=== PATIENT | male | born 1960 | race Caucasian/White ===

== ENCOUNTER → 2021-04-13 10:30 | Outpatient (CLI) | payer OTHER, SELFPAY ==
[2021-04-13 19:46] LABS: Add Manual Diff / Slide Review NO; Basophils Absolute Auto 0 /uL (0-100); Basophils Percent Auto 0.6 % (0-2); Eosinophils Absolute Auto 100 /uL (0-450); Eosinophils Percent Auto 2.4 % (2-4); Hematocrit 45.2 % (41-53); Hemoglobin 14.9 g/dL (13.5-17.5); Lymphocytes Absolute Auto 1400 /uL (1100-4500); Lymphocytes Percent Auto 24.8 % (25-40); Mean Corpuscular Hemoglobin 29.3 PG (26-34); Mean Corpuscular Volume 88.6 fL (80-100); Monocytes Absolute Auto 400 /uL (0-900); Monocytes Percent Auto 6.7 % (3-14); Neutrophils Absolute Auto 3700 /uL (1500-7000); Neutrophils Percent Auto 65.5 % (50-75); Platelet Count 239 X10^3/uL (150-400); Red Blood Cell Count 5.11 X10^6/uL (4.5-5.9); Red Cell Distribution Width 12.7 % (11.6-14.8); White Blood Cell Count 5.7 X10^3/uL (4.5-11.0)
[2021-04-13 19:54] LABS: Alanine Aminotransferase 15 IU/L (<50); Albumin 4.4 g/dL (3.5-5.0); Albumin Globulin Ratio 1.6 (1.0-2.8); Alkaline Phosphatase 62 U/L (38-126); Aspartate Aminotransferase 25 IU/L (17-59); BUN Creatinine Ratio 19.1 (6-22); Bilirubin Total 0.6 mg/dL (0.2-1.3); Blood Urea Nitrogen 17 mg/dL (9-20); Carbon Dioxide 31 mmol/L (22-32); Chloride 103 mmol/L (98-107); Cholesterol 253 mg/dL (140-199); Estimated Glomerular Filt Rate > 60.0 mL/min (>60); Globulin 2.7 g/dL (1.7-4.1); Glucose 94 mg/dL (80-110); HDL Cholesterol 57 mg/dL (40-60); HEMOLYSIS < 15 (0-50); LDL Cholesterol Calculated 175 mg/dL (<100); Potassium 4.4 mmol/L (3.4-5.1); Sodium 138 mmol/L (137-145); Total Protein 7.1 g/dL (6.3-8.2); Triglycerides 106 mg/dL (35-150)
[2021-04-13 20:23] LABS: Prostate Specific Antigen Scrn 1.21 ng/mL (0.1-4.0)
== END ==
PROVIDERS: PCP Family Medicine; Visit Provider Family Medicine
DX: Z00.01 Encounter for general adult medical examination with abnormal findings (principal); Z12.5 Encounter for screening for malignant neoplasm of prostate
CPT/HCPCS: 80053; 80061; 85025; G0103

== ENCOUNTER → 2021-04-14 09:20 | Outpatient (CLI) | payer OTHER, SELFPAY ==
[2021-04-17 15:36] LABS: Fecal Immunochemical Test Negative (Negative)
== END ==
PROVIDERS: PCP Family Medicine; Visit Provider Family Medicine
DX: Z00.01 Encounter for general adult medical examination with abnormal findings (principal)
CPT/HCPCS: 82274

== ENCOUNTER → 2021-12-01 08:07 | Outpatient (CLI) | payer OTHER, SELFPAY ==
[2021-12-01 20:34] LABS: COVID19 - ORCAS (NP or Nasal) Negative (Negative)
== END ==
PROVIDERS: PCP Family Medicine; Visit Provider Physician Assistant
DX: Z20.822 Contact with and (suspected) exposure to COVID-19 (principal)
CPT/HCPCS: U0003

== ENCOUNTER 2021-12-03 08:48 | Day surgery (SDC) | payer OTHER, SELFPAY ==
--- NOTE | 2021-12-03 | PATH_ITS ---
[facility] Accession Number: [id number] . 01 Material submitted: . PART A: colon - DESCENDING COLON POLYP PART B: colon - TRANSVERSE COLON POLYP . 02 Diagnosis: A. Descending Colon, Polyp, Biopsy: Tubular adenoma. . B. Transverse Colon, Polyp, Biopsy: Fragments of tubular adenoma and sessile serrated adenoma. MRV 12/08/2021 1437 Local . 02 Electronically signed: . Danni Marino MD, Pathologist NPI- [id number] . 01 Gross description: . Part A: DESCENDING COLON POLYP: Received in formalin are multiple fragment(s) of jolly, soft tissue measuring 1.5 x 0.4 x 0.1 cm in aggregate submitted entirely in 1 cassette(s) Part B: TRANSVERSE COLON POLYP: Received in formalin are multiple fragment(s) of jolly, soft tissue measuring 2.2 x 0.4 x 0.1 cm in aggregate submitted entirely in 1 cassette(s) /CPE 12/04/2021 0631 Local . 02 Pathologist provided ICD-10: D12.4, D12.3 . 02 CPT . 234088, [id number] Specimen Comment: A courtesy copy of this report has been sent to [phone] Performed at: 01 [facility] [address] [facility], [place], [place] [id number] MD Sathya Dupree MD Phone: [phone] Performed at: 02 [facility] [address] [place], [place] [id number] MD Danni Marino MD Phone: [phone]
[2021-12-03] MEDS: LACTATED RINGERS 1,000 ML 84 ML IV (10:12)
[2021-12-03 10:22] VITALS: BP 148/91; PULSE 90; RESP 16; TEMP 36.9; O2SAT 98; BMI 22.5
--- NOTE | 2021-12-03 11:41 | PM.HP.1 ---
History of Present Illness History of Present Illness Date Patient Seen: 12/03/21 Time Patient Seen: 11:41 Chief complaint: SCREENING COLONOSCOPY Narrative: Deric is a 61-year-old man who has never had a colonoscopy before. He has had stool testing which has been negative. No known immediate family members with colon cancer. Patient History Family & Social History Social History: household members spouse Tobacco & Substance use: Smoking Status Never smoker alcohol intake current alcohol intake frequency 0-2 drinks per day Substance Use Type does not use Meds Home Medications and Allergies Home Medications Medication Instructions Recorded Confirmed Type No Known Home Medications 12/03/21 12/03/21 History Allergies Allergy/AdvReac Type Severity Reaction Status Date / Time No Known Drug Allergies Allergy Verified 12/03/21 10:15 Exam Vital Signs (past 8 hours): - 12/03/21 10:22 Temperature 98.5 F Pulse Rate 90 Respiratory Rate 16 Blood Pressure 148/91 H Pulse Oximetry 98 Oxygen Delivery Method Room Air Const General: healthy appearing Resp Effort & Inspection: normal respiratory effort GI Palpation: soft Assessment & Plan Assessment and plan (1) Colon cancer screening: Status: Acute Plan 61-year-old average risk man here for colon cancer screening. Reviewed risks and benefits and he would like to proceed. COVID-19 COVID-19 status: Negative Result date/Date tested (Pos, Neg/Pending): 12/02/21 Time Spent With Patient Critical Care time: I spent a total of [] minutes of critical care time on this patient's care today; this time is exclusive of procedural time.
[2021-12-03] MEDS: fentaNYL 250 MCG/5 ML INJ IV (11:50)
[2021-12-03] MEDS: MIDAZOLAM 5 MG/5 ML VIAL 4 MG IV (11:50)
--- NOTE | 2021-12-03 12:14 | PM.OP.COLON ---
Operative Date/Time/Diagnoses Date of procedure: 12/03/21 Time of procedure: 12:14 Pre-op diagnosis: Colon cancer screening Post-op diagnosis: same Procedure Notes Procedure in detail: Surgeon: Deric Cruz MD Procedure: The patient was brought to the endoscopy suite, placed in left lateral decubitus position. The patient was connected to monitoring devices. A time-out was performed. Sedation was administered. Once the patient was adequately sedated, a digital rectal exam was performed and was normal. The scope was then inserted and advanced to the cecum where the appendiceal orifice was identified and photographed. The scope was then slowly withdrawn over greater than 6 minutes. Mucosa was thoroughly inspected. There was a 1 cm sessile polyp in the transverse colon which was removed with the cold snare and a 1 cm pedunculated polyp in the descending colon removed with a cold snare. The scope was retroflexed in the rectum. There were some internal hemorrhoids but no other abnormalities. The scope was straightened and removed. The patient was awakened and brought to recovery. Versed: 4 mg Fentanyl: 150 mcg EBL: 5 mL Findings: 1 cm polyps in the transverse colon and descending colon Scope withdrawal time: 11 Sedation minutes: 22 Post-procedure Recommendations: Will call with biopsy results Disposition: PACU
[2021-12-03 12:18] VITALS: BP 121/80; PULSE 73; RESP 21; TEMP 36.3; O2SAT 98
[2021-12-03 12:24] VITALS: BP 113/83; PULSE 84; RESP 15; O2SAT 98
[2021-12-03 12:31] VITALS: BP 118/75; PULSE 68; RESP 16; TEMP 36.7; O2SAT 98
== END 2021-12-03 12:42 | disposition home or self-care (01) ==
PROVIDERS: PCP Family Medicine; Referring Provider Surgery; Visit Provider Surgery
PROC: 0DJD8ZZ Inspection of Lower Intestinal Tract, Via Natural or Artificial Opening Endoscopic (ICD-10-PCS; CPT 45378; principal; 2021-12-03 11:45)
DX: Z12.11 Encounter for screening for malignant neoplasm of colon (principal); K64.8 Other hemorrhoids; D12.4 Benign neoplasm of descending colon; D12.3 Benign neoplasm of transverse colon
CPT/HCPCS: 45385; 99152; J2250; J3010

== ENCOUNTER → 2023-01-05 11:34 | Outpatient (CLI) | payer OTHER, SELFPAY ==
[2023-01-05 20:05] LABS: Cholesterol 155 mg/dL (140-199); HDL Cholesterol 38 mg/dL (40-60); LDL Cholesterol Calculated 99 mg/dL (<100); Triglycerides 92 mg/dL (35-150)
== END ==
PROVIDERS: PCP Physician Assistant; Visit Provider Physician Assistant
DX: E78.00 Pure hypercholesterolemia, unspecified (principal)
CPT/HCPCS: 80061

== ENCOUNTER → 2023-12-15 11:34 | Outpatient (CLI) | payer OTHER, SELFPAY ==
[2023-12-15 21:45] LABS: Add Manual Diff / Slide Review NO; Basophils Absolute Auto 0 /uL (0-100); Basophils Percent Auto 0.5 % (0-2); Eosinophils Absolute Auto 200 /uL (0-450); Eosinophils Percent Auto 2.1 % (2-4); Hematocrit 44.4 % (41-53); Hemoglobin 15.3 g/dL (13.5-17.5); Lymphocytes Absolute Auto 1800 /uL (1100-4500); Lymphocytes Percent Auto 21.7 % (25-40); Mean Corpuscular HGB Conc 34.5 % (30-36); Mean Corpuscular Hemoglobin 31.8 PG (26-34); Mean Corpuscular Volume 92.4 fL (80-100); Monocytes Absolute Auto 500 /uL (0-900); Monocytes Percent Auto 5.4 % (3-14); Neutrophils Absolute Auto 5900 /uL (1500-7000); Neutrophils Percent Auto 70.3 % (50-75); Platelet Count 245 X10^3/uL (150-400); Red Blood Cell Count 4.81 X10^6/uL (4.5-5.9); Red Cell Distribution Width 12.3 % (11.6-14.8); White Blood Cell Count 8.4 X10^3/uL (4.5-11.0)
[2023-12-15 22:36] LABS: Alanine Aminotransferase 19 IU/L (<50); Albumin 4.1 g/dL (3.5-5.0); Albumin Globulin Ratio 1.8 (1.0-2.8); Alkaline Phosphatase 85 U/L (38-126); Aspartate Aminotransferase 26 IU/L (17-59); BUN Creatinine Ratio 30.1 (6-22); Bilirubin Total 0.6 mg/dL (0.2-1.3); Blood Urea Nitrogen 22 mg/dL (9-20); Calcium 9.6 mg/dL (8.4-10.2); Carbon Dioxide 31 mmol/L (22-32); Chloride 104 mmol/L (98-107); Cholesterol 189 mg/dL (140-199); Estimated Glomerular Filt Rate > 60 mL/min (>60); Globulin 2.3 g/dL (1.7-4.1); Glucose 91 mg/dL (80-110); HDL Cholesterol 40 mg/dL (40-60); HEMOLYSIS < 15 (0-50); LDL Cholesterol Calculated 90 mg/dL (<100); Sodium 142 mmol/L (137-145); Total Protein 6.4 g/dL (6.3-8.2); Triglycerides 296 mg/dL (35-150)
[2023-12-15 23:04] LABS: Prostate Specific Antigen Scrn 0.723 ng/mL (0.1-4.0)
== END ==
PROVIDERS: PCP Physician Assistant; Visit Provider Family Medicine
DX: Z12.5 Encounter for screening for malignant neoplasm of prostate (principal); Z13.6 Encounter for screening for cardiovascular disorders; Z13.1 Encounter for screening for diabetes mellitus; N42.89 Other specified disorders of prostate; E78.2 Mixed hyperlipidemia
CPT/HCPCS: 80053; 80061; 85025; G0103

== ENCOUNTER → 2025-01-31 10:18 | Outpatient (CLI) | payer MEDICARE, OTHER, SELFPAY ==
[2025-01-31 19:41] LABS: Cholesterol 222 mg/dL (140-199); Glucose 92 mg/dL (70-99); HDL Cholesterol 48 mg/dL (40-60); Triglycerides 137 mg/dL (35-150)
[2025-01-31 20:39] LABS: Hep C Virus Ab w/Reflex Quant NEGATIVE s/c (NEGATIVE)
== END ==
PROVIDERS: PCP Physician Assistant; Visit Provider Family Medicine
DX: Z12.5 Encounter for screening for malignant neoplasm of prostate (principal); Z13.1 Encounter for screening for diabetes mellitus; Z13.6 Encounter for screening for cardiovascular disorders; Z11.59 Encounter for screening for other viral diseases
CPT/HCPCS: 80061; 82947; 86803; G0103